=== PATIENT | male | born 1995 | race Two or more races ===

== ENCOUNTER 2018-06-16 11:53 | Emergency (ER) | payer OTHER ==
[2018-06-16 14:36] LABS: ABS Basophils 0 10^3/ul (0-0.2); ABS Eosinophils 0.2 10^3/ul (0-0.6); ABS Lymphocytes 1.6 10^3/ul (1.0-4.8); ABS Monocytes 0.5 10^3/ul (0-0.8); ABS Neutrophils 3.6 10^3/ul (1.5-7.7); ABS Nucleated RBC 0 10^3/ul; Eosinophil % 2.7 %; Hematocrit 45 % (42-52); Hemoglobin 15.5 g/dl (14.0-18.0); Lymphocyte % 27.4 %; Mean Corpuscular HGB Conc 35 g/dl (31-36); Mean Corpuscular Hemoglobin 31 pg (27-31); Mean Corpuscular Volume 89 fL (80-94); Mean Platelet Volume 7.9 fL (7.4-10.4); Nucleated Red Blood Cells % 0; Platelet Count 232 10^3/ul (150-450); Red Blood Count 5.02 10^6/ul (4.00-5.40); Red Cell Distribution Width 13 % (10.5-15); White Blood Count 5.9 10^3/ul (3.5-10.8)
--- NOTE | 2018-06-16 14:58 | ED ---
GI/ HPI - HPI Summary HPI Summary: Patient presents with left-sided testicular pain. He reports he had a twinge of pain 2 weeks ago into this area that was sharp but brief. He noticed while walking. No pain since however he developed pain in Lt testicle radiating up into groin/lower ab yesterday which has persisted today - started while seated but persisted while lying as well. Also admits to left-sided flank pain - dull. Denies symptoms of urinary urgency, frequency, hesitation, change in stream, hematuria, abnormal penile discharge, lesions, testicular swelling, difficulty with ejaculation, pain with intercourse. Additionally, he denies fever, chills, chest pain, abdominal pain, change in bowel movements. He's been eating and drinking as normal. He admits to history of testicular surgery when he was a child for a condition he does not know but reports "I had some fluid in my testicle". No residual issue since. Denies known history of UTI, kidney infection, urinary tract stone as well as prostate issues or STD. He is sexually active with his girlfriend. - History of Current Complaint Chief Complaint: EDUrogenitalProblems Time Seen by Provider: 06/16/18 12:52 Stated Complaint: LEFT TESTICULAR PAIN Hx Obtained From: Patient, Family/Pharmacy Manager - girlfriend Pain Intensity: 3 - Allergy/Home Medications Allergies/Adverse Reactions: Allergies Allergy/AdvReac Type Severity Reaction Status Date / Time No Known Allergies Allergy Verified 06/16/18 12:00 Home Medications: Home Medications NK [No Home Medications Reported] 06/16/18 [History Confirmed 06/16/18] PMH/Surg Hx/FS Hx/Imm Hx Previously Healthy: Yes Endocrine/Hematology History: Denies: Hx Anticoagulant Therapy, Hx Blood Disorders, Hx Diabetes, Autoimmune Disease GI History: Denies: Other GI Disorders - no h/o hernia History: Reports: Other Problems/Disorders - testicle surgery as a child - "fluid in testicle" - no residual effects Denies: Hx Kidney Infection, Hx Kidney Stones - Immunization History Immunizations Up to Date: Yes Infectious Disease History: No Infectious Disease History: Denies: Traveled Outside the [place] in Last 30 Days - Family History Known Family History: Positive: Diabetes - grandfather - Social History Occupation: Student Lives: With Family Alcohol Use: Occasionally Hx Substance Use: No Substance Use Type: Reports: None Hx Tobacco Use: No Smoking Status (MU): Never Smoked Tobacco Review of Systems Constitutional: Negative Negative: Fever, Chills, Fatigue Cardiovascular: Negative Respiratory: Negative Positive: Abdominal Pain. Negative: Vomiting, Diarrhea, Nausea Positive: see HPI Musculoskeletal: Negative Skin: Negative Neurological: Negative Psychological: Normal All Other Systems Reviewed And Are Negative: Yes Physical Exam Triage Information Reviewed: Yes Vital Signs On Initial Exam: Initial Vitals Temp Pulse Resp BP Pulse Ox 98.9 F 69 18 133/68 100 06/16/18 11:55 06/16/18 11:55 06/16/18 11:55 06/16/18 11:55 06/16/18 11:55 Vital Signs Reviewed: Yes Appearance: Positive: Well-Appearing, No Pain Distress, Well-Nourished Skin: Positive: Warm, Skin Color Reflects Adequate Perfusion, Dry - no ecchymosis, no erythema, no lesions over affected areas of flank, ab, genital region Head/Face: Positive: Normal Head/Face Inspection Eyes: Positive: Normal, EOMI, Conjunctiva Clear ENT: Positive: Hearing grossly normal, Pharynx normal - mucosa moist Neck: Positive: Supple, Nontender Respiratory/Lung Sounds: Positive: Clear to Auscultation, Breath Sounds Present Cardiovascular: Positive: Normal, RRR Abdomen Description: Positive: Nontender, No Organomegaly, Soft, CVA Tenderness (L). Negative: CVA Tenderness (R), Distended, Guarding, Hernia @ Male Genital Exam: Positive: No Hernia, Epididymal Tenderness - possibly inferior epididymal TTP along lt posterior testicle. Negative: Bleeding, Erythema, Inguinal Tenderness, Lesions, Scrotum Tenderness (R), Scrotum Tenderness (L), Testicular Tenderness (R), Testicular Tenderness (L), Urethral Discharge Musculoskeletal: Positive: Normal, Strength/ROM Intact Neurological: Positive: Normal, Sensory/Motor Intact, Alert, Oriented to Person Place, Time, CN Intact II-III Psychiatric: Positive: Normal Diagnostics - Vital Signs Vital Signs Temp Pulse Resp BP Pulse Ox 06/16/18 11:55 98.9 F 69 18 133/68 100 - Laboratory Lab Results: Lab Results 06/16/18 Range/Units 14:27 WBC 5.9 (3.5-10.8) 10^3/ul RBC 5.02 (4.00-5.40) 10^6/ul Hgb 15.5 (14.0-18.0) g/dl Hct 45 (42-52) % MCV 89 (80-94) fL MCH 31 (27-31) pg MCHC 35 (31-36) g/dl RDW 13 (10.5-15) % Plt Count 232 (150-450) 10^3/ul MPV 7.9 (7.4-10.4) fL Neut % (Auto) 61.7 % Lymph % (Auto) 27.4 % Pettis % (Auto) 7.9 % Eos % (Auto) 2.7 % Baso % (Auto) 0.3 % Absolute Neuts (auto) 3.6 (1.5-7.7) 10^3/ul Absolute Lymphs (auto) 1.6 (1.0-4.8) 10^3/ul Absolute Monos (auto) 0.5 (0-0.8) 10^3/ul Absolute Eos (auto) 0.2 (0-0.6) 10^3/ul Absolute Basos (auto) 0 (0-0.2) 10^3/ul Absolute Nucleated RBC 0 10^3/ul Nucleated RBC % 0 Result Diagrams: 06/16/18 14:27 06/16/18 14:27 Lab Statement: Any lab studies that have been ordered have been reviewed, and results considered in the medical decision making process. Re-Evaluation - Re-Evaluation First Eval Change: Unchanged - pt still 5/10 pain but again declines pain medication GIGU Course/Dx - Course Course Of Treatment: LABS: WNL. Urine: all neg and normal. U/S: testicular exam reveals epididymal cyst on Rt - no abnormal findings on Lt; Renal normal. Pending urine gonorrhea, chalmydia. Discussed w/ Dr. Delatorre who recommends CT ab /pelvis to r/o hernia, etc. Discussed w/ pt who would like to proceed w/ CT as he's uncomfortable and unsure of why he's having testicular pain. Pt signed out to Raffy Cintron PA-C pending CT scan in stable condition. - Diagnoses Provider Diagnoses: Left testicular pain, Epididymal cyst Discharge - Sign-Out/Discharge Documenting (check all that apply): Sign-Out Patient Signing out patient TO: Raffy Cintron - Discharge Plan Condition: Stable Disposition: HOME Patient Education Materials: Testicle Pain (ED) Referrals: [facility] - Jaden SANTOS [Primary Care Provider] - Andrei Hidalgo MD [Medical Doctor] - Additional Instructions: Follow-up with urology Dr. Hidalgo for further evaluation of testicular pain. Return to ED for any new or worsening symptoms - Billing Disposition and Condition Condition: STABLE Disposition: Home
[2018-06-16 14:59] LABS: Urine Appearance Clear; Urine Blood Negative (Negative); Urine Color Yellow; Urine Ketones Negative (Negative); Urine Protein Negative (Negative); Urine Specific Gravity 1.016 (1.010-1.030); Urine Urobilinogen Negative (Negative)
[2018-06-16 15:07] LABS: EGFR Non-African American 105.2 (>60)
[2018-06-16] MEDS ORDERED: NS 0.9% 1000 ML* 1,000 ML IV ONE (16:34)
[2018-06-16] MEDS ORDERED: Iohexol 300* (CONTRAST) 10 ML SDV IV ONE (16:50)
[2018-06-16 21:01] VITALS: BP 122/69
== END 2018-06-16 21:00 | disposition home or self-care (01) ==
LOC: ED 11:53
DX: N50.812 Left testicular pain (principal); N50.3 Cyst of epididymis
CPT/HCPCS: 36415; 74177; 76775; 76870; 80053; 81003; 83605; 85025; 86140; 96361; 96374; 99282; Q9967